=== PATIENT | female | born 1985 | race Caucasian/White ===

== ENCOUNTER 2017-02-22 20:35 | Emergency (ER) | payer OTHER ==
[~2017-02-22 20:35] MED LIST: COLACE100 MG PO; GAVISCON ES CH1 EACH PO; IBUPROFEN800 M1 PO; MOTRIN800 MG PO; NORCO 5-325 TA1 EACH PO; NORCO 5/3251 TAB PO; PRENATAL1 TAB PO; TYLENOL EXTRA500 M1 PO; TYLENOL500 MG PO; ZANTAC150 M1 PO; ZANTAC150 MG PO; ZOFRAN4 M2 PO; ZOFRAN8 MG PO
[2017-02-22] MEDS ORDERED: BIRTH CONTROL (20:45)
[2017-02-22 21:13] LABS: BASO % 0.2 % (0-2); EOS % 0.4 % (0-7); EOSINOPHIL ABSOLUTE COUNT 0.1 tho/cmm (0.0-0.7); HCT-HEMATOCRIT 47.6 % (34.0-49.0); HGB-HEMOGLOBIN 15.7 gm/dl (12.0-15.5); IMMATURE GRANULOCYTES ABSOLUTE 0.05 tho/cmm (0-0.03); IMMATURE GRANULOCYTES PERCENT 0.3 % (0-0.3); LYMPH % 7.9 % (20-45); LYMPH ABSOLUTE COUNT 1.3 tho/cmm (0.8-4.5); MCH (MEAN CORPUSCULAR HGB) 27.6 pg (28.0-32.0); MCV (MEAN CELL VOLUME) 83.7 fl (82.0-96.0); MEAN PLATELET VOLUME 10.5 cmc (9.4-12.4); MONO % 5.3 % (0-12); MONOCYTE ABSOLUTE COUNT 0.9 tho/cmm (0.0-1.2); NEUTROPHIL ABSOLUTE COUNT 14.5 tho/cmm (1.6-8.0); NEUTROPHIL-AUTOMATED 14.5 tho/cmm (1.6-8.0); NEUTROPHILS % 85.9 % (40-80); PLATELET COUNT 304 tho/cmm (150-450); RED BLOOD COUNT 5.69 mil/cmm (4.00-5.20); WHITE BLOOD COUNT 16.9 tho/cmm (4.0-10.0)
[2017-02-22 21:27] LABS: ALB/GLOB RATIO 0.8 (0.8-2.0); ALBUMIN 3.5 g/dl (3.5-5.0); ALKALINE PHOSPHATASE 63 U/L (33-138); ALT/SGPT 19 U/L (12-78); BILIRUBIN,TOTAL 0.6 mg/dl (0-1.5); BLOOD UREA NITROGEN 11 mg/dl (6-24); CALCIUM 8.9 mg/dl (8.5-10.5); CARBON DIOXIDE-VENOUS 24 mmol/L (22-32); CHLORIDE 107 mmol/l (96-110); CREATININE 0.76 mg/dl (0.50-1.10); GLUCOSE 147 mg/dL (70-110); LIPASE 124 U/L (73-393); SODIUM 141 mmol/L (135-145); eGFR VALUE FOR BLACK >90 mL/Min
[2017-02-22 21:28] LABS: ANION GAP 15 mmol/L (0-20); AST/SGOT 37 U/L (10-40)
[2017-02-22 22:58] LABS: URINE BILIRUBIN SMALL (NEG); URINE BLOOD NEGATIVE (NEG); URINE GLUCOSE (UA) NEGATIVE (NEG); URINE KETONE LARGE (NEG); URINE LEUKOCYTE ESTERASE POSITIVE (NEG); URINE NITRITE NEGATIVE (NEG); URINE PROTEIN SMALL (NEG)
[2017-02-22] MEDS ORDERED: ZOFRAN ODT4 MG PO (22:59)
[2017-02-22] MEDS ORDERED: LEVSIN-SL0.125 MG SL (22:59)
[2017-02-22 23:01] LABS: URINE APPEARANCE HAZY; URINE COLOR YELLOW
[2017-02-22 23:04] LABS: URINE MUCUS 3+
[2017-02-22 23:05] LABS: URINE BACTERIA 1+
[2017-02-22 23:08] LABS: URINE RBC 0-1 /[HPF] (0-5)
== END 2017-02-22 23:03 ==
LOC: EDMED 20:35
PROVIDERS: Emergency Medicine
DX: R11.2 Nausea with vomiting, unspecified (principal); R19.7 Diarrhea, unspecified; R10.84 Generalized abdominal pain; I10 Essential (primary) hypertension; Z79.3 Long term (current) use of hormonal contraceptives
CPT/HCPCS: J1170; J7030